=== PATIENT | male | born 1965 | race Caucasian/White ===

== ENCOUNTER 2021-01-01 10:28 | Observation (INO) | payer OTHER, SELFPAY ==
[2021-01-01] VITALS (12 sets, daily range): BP systolic 137–190; BP diastolic 88–130; PULSE 78–118; RESP 16; TEMP 36.2–36.7; O2SAT 97–100; BMI 31.1
--- NOTE | ~2021-01-01 | US_ITS ---
EXAMINATION: US abdomen limited EXAM DATE: 01/01/2021 15:00 INDICATION: RUQ abd pain, acute nichole. TECHNIQUE: Multiple grayscale and Doppler images of the abdomen right upper quadrant were obtained (b y a technologist who performed the scan) and subsequently reviewed. Correlation is made to CT abdomen pelvis 01/01/2021. FINDINGS: The pancreatic head and body are normal in appearance. The pancreatic tail is not visualized. The l iver has normal echogenicity and contour. There are no focal liver lesions identified. There is no evidence of intrahepatic biliary duct dilation. Portal venous flow was seen in the hepatopedal, nor mal direction and has normal Doppler waveform. No right-sided hydronephrosis. Common bile duct measures 6 mm, which is normal. Gallbladder is moderately distended with mildly thic kened wall at 4 mm. There is probable poorly calcified cholelithiasis. Technologist performing exam r dean patient did not demonstrate sonographic Shirley's sign. Please note that this sign is less rel iable in patients who have received pain medication. IMPRESSION: 1. Moderately distended gallbladder with mild wall thickening and probable poorly calcified cholelit hiasis. Possible acute cholecystitis. Consider HIDA scan. 2. Hepatic steatosis. Reviewed, dictated and finalized at location B. IMPRESSION: 1. Moderately distended gallbladder with mild wall thickening and probable poo rly calcified cholelithiasis. Possible acute cholecystitis. Consider HIDA scan. 2. Hepatic steatosis.
--- NOTE | ~2021-01-01 | CT_ITS ---
EXAMINATION: CT abdomen pelvis w con DATE: 01/01/2021 14:03 INDICATION: Right mid abdominal pain. TECHNIQUE: Computed tomography (CT) of the abdomen and pelvis was performed with 100 mL Omnipaque 350 intravenous contrast. Automated exposure control and iterative reconstruction technique were employe d. The dose-length product was 474.76 mGy-cm. COMPARISON: Chest CT 11/13/2006 FINDINGS: The visualized portions of the lung bases demonstrate mild atelectasis. No pleural effusion . The heart size is normal. No pericardial effusion. There is diffuse hepatic steatosis. The gallblad melissa is distended. There is a gallstone in the gallbladder neck. The spleen, pancreas, adrenal glands, and kidneys are normal. There are no dilated loops of bowel. The appendix is normal. There are no pa thologically enlarged lymph nodes. There is no free intraperitoneal fluid. There is mild chronic ante rior wedging of T11 and T12 vertebral bodies. There is mild thoracolumbar spondylosis. IMPRESSION: 1. Distended gallbladder with gallstone in the gallbladder neck suspicious for acute cholecystitis. 2. Diffuse hepatic steatosis. Reviewed, dictated and finalized at location A.
[2021-01-01 11:10] LABS: Basophils Absolute Auto 0.1 K/mm3 (0.0-0.1); Eosinophils Absolute Auto 0.1 K/mm3 (0-0.3); Eosinophils Percent Auto 0.4 % (0-4.4); Hematocrit 43.7 % (42.0-52.0); Hemoglobin 15.6 g/dL (14.0-18.0); Immature Granulocyte Absolute 0.15 K/mm3 (0.00-0.031); Immature Granulocyte Percent A 1.1 % (0-0.5); Lymphocytes Absolute Auto 2.28 K/mm3 (0.9-3.2); Lymphocytes Percent Auto 16.8 % (18.3-44.2); Mean Corpuscular HGB Conc 35.7 g/dl (32-36); Mean Corpuscular Volume 89.7 fl (80-100); Mean Platelet Volume 9.8 fl (7.4-10.4); Monocytes Absolute Auto 1.2 K/mm3 (0.1-0.6); Monocytes Percent Auto 9.2 % (2.6-8.5); Neutrophils Absolute Auto 9.7 K/mm3 (1.3-6.7); Neutrophils Percent Auto 71.5 % (45.5-73.1); Platelet Count Result 257 k/mm3 (150-375); Red Blood Count 4.87 M/mm3 (4.6-6.20); Red Cell Distribution Width 11.7 % (11.5-14.5); White Blood Count 13.5 K/mm3 (4.5-10.0)
[2021-01-01 11:29] LABS: Alanine Aminotransferase 36 U/L (4-50); Albumin Level 4.6 g/dL (3.5-5.1); Alkaline Phosphatase 55 U/L (38-126); Anion Gap 13 mmol/L (8-16); Aspartate Amino Transferase 30 U/L (17-59); Bilirubin,Total 0.6 mg/dL (0.2-1.3); Blood Urea Nitrogen 10 mg/dL (9-20); Calcium 8.9 mg/dL (8.4-10.2); Carbon Dioxide 22 mmol/L (22-30); Chloride 96 mmol/L (98-107); Estimated CRCL calculation 73 ml/min; Estimated Glomerular Filt Rate > 60; Glucose 341 mg/dL (65-110); Lipase 58 U/L (23-300); Potassium 3.6 mmol/L (3.4-5.0); Sodium 131 mmol/L (137-145)
--- NOTE | 2021-01-01 12:25 | ED.ABDPAIN ---
HPI - Abdominal Pain General Chief Complaint: Abdominal Pain Stated Complaint: ABD PAIN [id number] Time Seen by Provider: 01/01/21 12:24 Source: patient Mode of arrival: ambulatory Limitations: no limitations History of Present Illness HPI narrative: Patient is a 55-year-old male presenting for evaluation of right sided abdominal pain. Patient states pain has been present over the past week, pain initially began after he ate [employer] pizza. He reports sharp pain in the right middle abdomen without radiation to the flank. He denies associated fever or chills, does report multiple episodes of nausea and vomiting. Patient states he has been unable to tolerate any oral intake in the past 36 hours. Patient denies any dysuria or hematuria. No history of nephrolithiasis. No history of intra-abdominal surgeries. Patient states that he usually drinks 4 to 5 glasses of wine daily, denies history of alcohol withdrawal. Denies history of seizure disorder. Patient denies any diarrhea or constipation. No significant abdominal distention. Related Data Home Medications Medication Instructions Recorded Confirmed No Home Medications 01/01/21 01/01/21 Allergies Allergy/AdvReac Type Severity Reaction Status Date / Time No Known Allergies Allergy Verified 01/01/21 13:42 Review of Systems Review of Systems: CONSTITUTIONAL: Denies fever, chills, or sweats. EYES: Denies visual changes, redness, or discharge. ENT: Denies rhinorrhea, congestion, sore throat, or otalgia. CARDIOVASCULAR: Denies chest pain, palpitations, or edema. RESPIRATORY: Denies cough or dyspnea. GASTROINTESTINAL: Reports right-sided abdominal pain, nausea and vomiting GENITOURINARY: Denies dysuria or hematuria. SKIN: Denies rash or itching. MUSCULOSKELETAL: Denies back pain, joint pain, or myalgia. NEUROLOGIC: Denies headache, numbness, or weakness. [facility] Social History Social History (Updated 01/01/21 @ 13:00 by Mira Alcantar MD) Smoking status: Current every day smoker Tobacco type: e-cigarettes/vaping Alcohol intake: current Drinks per week: 20 Alcohol use details: 4-5 large glasses of wine daily per patient Substance use: never Gender identity (if verbalized by the patient): Male Exam Narrative: GENERAL: Awake, alert, conversant HEAD: Normocephalic, atraumatic. EYES: PERRLA and EOMI. ENT: Nares clear, no rhinorrhea or epistaxis. Mucous membranes moist. NECK: Supple. CHEST: No respiratory distress, breathing even and non labored HEART: Tachycardic rate, sinus rhythm ABDOMEN:Non distended,tender in the right middle abdomen, - McBurney's point tenderness, no epigastric tenderness, non rigid, + guarding, no flank tenderness EXTREMITIES: Normal range of motion. No edema. SKIN: Warm, dry, no rash. NEURO:No focal deficits. Alert and oriented x3 Course Vital Signs Vital signs: Vital Signs Temperature 36.7 C 01/01/21 10:42 Pulse Rate 118 H 01/01/21 10:42 Respiratory Rate 16 01/01/21 10:42 Blood Pressure 168/110 H 01/01/21 10:42 Pulse Oximetry 100 01/01/21 10:42 Temperature 36.7 C 01/01/21 10:42 Pulse Rate 118 H 01/01/21 10:42 Respiratory Rate 16 01/01/21 10:42 Blood Pressure 168/110 H 01/01/21 10:42 Pulse Oximetry 100 01/01/21 10:42 MDM - Abdominal Pain MDM Narrative Medical decision making narrative: Patient presenting for evaluation of abdominal pain. At the time of assessment, ABCs are intact and vital signs are stable but notable for tachycardia. Patient with reproducible right middle abdominal tenderness on exam. Negative for Shirley sign, no flank tenderness. Given clinical symptoms, concern for possible cholecystitis, gastroenteritis, nephrolithiasis. IV access obtained and patient was given a 30 mL/kg fluid bolus given he is meeting SIRS criteria with a tachycardia and leukocytosis. Patient without transaminitis. No hyperbilirubinemia. CT scan notable for acute cholecystitis. Patient was given
[2021-01-01] MEDS: SODIUM CHLORIDE 0.9% IV 1,000 ML 999 ML IV CONT ×2 (13:16→14:17)
[2021-01-01] MEDS: MORPHINE SULFATE (*CRX) 4 MG/ML INJ IV PUSH ×4 (13:40→23:54)
[2021-01-01] MEDS: ONDANSETRON INJ 4 MG/2 ML VIAL IV PUSH (13:40)
[2021-01-01 13:48] LABS: Add Urine Microscopic? YES; Appearance Urine Cloudy (Clear); Bacteria Urine Trace /hpf; Bilirubin Urine Negative (Negative); Blood Urine Negative (Negative); Color Urine Yellow (Yellow); Glucose Urine UA 3+ mg/dL (Negative); Ketones Urine Trace mg/dL (Negative); Leukocyte Esterase Ur Negative LEU/UL (Negative); Mucus Urine Rare /lpf; Nitrate Urine Negative (Negative); Protein Urine Negative (Negative); Specific Grav Ur 1.026 (1.001-1.035); Squamous Epithelial Cell Urine Few /hpf (Few); Urobilinogen Urine Negative mg/dL (<2.0)
[2021-01-01 14:02] LABS: Lactic Acid Reflex 1.2 mmol/L (0.7-2.1)
[2021-01-01] MEDS: HYDROmorphone HCL INJ (*CRX) 1 MG/ML SYR 0.5 MG IV PUSH (17:16)
--- NOTE | 2021-01-01 20:01 | ADMGEN ---
This patient, Mayank Contreras Jr., was admitted to Medical Room 249-01. Patient/family oriented to hospital policies and general routines including ID bracelet, bed and alarms, visiting hours, pain management, procedures, bathroom and other care routines, personal items, smoking policy, room service/diet, and visiting hours. Information on how to activate the Rapid Response Team has been discussed. Patient/Family are encouraged to report perceived risks to care and to ask questions if they do not understand what they are told or what they should do.
[2021-01-02] VITALS (16 sets, daily range): BP systolic 126–174; BP diastolic 76–95; PULSE 72–108; RESP 12–19; TEMP 36.1–36.9; O2SAT 95–100
[2021-01-02] MEDS: SODIUM CHLORIDE 0.9% IV 1,000 ML 125 ML IV CONT (01:36)
[2021-01-02] MEDS: MORPHINE SULFATE (*CRX) 4 MG/ML INJ IV PUSH (05:18)
[2021-01-02 05:28] LABS: Basophils Absolute Auto 0.1 K/mm3 (0.0-0.1); Basophils Percent Auto 1.1 % (0.2-1.2); Eosinophils Absolute Auto 0.2 K/mm3 (0-0.3); Eosinophils Percent Auto 3.2 % (0-4.4); Hematocrit 36.4 % (42.0-52.0); Hemoglobin 12.3 g/dL (14.0-18.0); Immature Granulocyte Absolute 0.06 K/mm3 (0.00-0.031); Immature Granulocyte Percent A 0.8 % (0-0.5); Lymphocytes Absolute Auto 2.37 K/mm3 (0.9-3.2); Lymphocytes Percent Auto 32.8 % (18.3-44.2); Mean Corpuscular HGB Conc 33.8 g/dl (32-36); Mean Corpuscular Hemoglobin 31.9 pg (26-34); Mean Corpuscular Volume 94.3 fl (80-100); Mean Platelet Volume 9.6 fl (7.4-10.4); Monocytes Absolute Auto 0.8 K/mm3 (0.1-0.6); Monocytes Percent Auto 11.5 % (2.6-8.5); Neutrophils Absolute Auto 3.7 K/mm3 (1.3-6.7); Neutrophils Percent Auto 50.6 % (45.5-73.1); Platelet Count Result 206 k/mm3 (150-375); Red Blood Count 3.86 M/mm3 (4.6-6.20); Red Cell Distribution Width 11.9 % (11.5-14.5); White Blood Count 7.2 K/mm3 (4.5-10.0)
[2021-01-02 05:39] LABS: Alanine Aminotransferase 43 U/L (4-50); Albumin Level 3.1 g/dL (3.5-5.1); Alkaline Phosphatase 38 U/L (38-126); Anion Gap 6 mmol/L (8-16); Aspartate Amino Transferase 38 U/L (17-59); Bilirubin,Total 0.5 mg/dL (0.2-1.3); Blood Urea Nitrogen 6 mg/dL (9-20); Calcium 7.9 mg/dL (8.4-10.2); Carbon Dioxide 25 mmol/L (22-30); Chloride 105 mmol/L (98-107); Estimated CRCL calculation 92 ml/min; Estimated Glomerular Filt Rate > 60; Glucose 203 mg/dL (65-110); Lipase 44 U/L (23-300); Potassium 3.9 mmol/L (3.4-5.0); Sodium 136 mmol/L (137-145)
[2021-01-02] MEDS: ONDANSETRON INJ 4 MG/2 ML VIAL IV PUSH (06:38)
--- NOTE | 2021-01-02 09:16 | PC.NURSE ---
I entered pt's room at approximately 0800 to change his IV fluids at which time I saw a breakfast tray (of clear liquids) that was given to pt. Pt confirmed that he drank everything on the tray. Pt is scheduled to have a laparoscopic cholecystectomy at 1330 and was to be NPO since midnight. I verified that the NPO order had not been placed and pt still had a clear liquids diet as active. I changed the diet to NPO. I explained to pt that he was to be NPO and they may have to postpone his surgery now. I also explained the reasoning behind the NPO order for surgeries. I accompanied pt as I had him walk the hallways in an effort to increase his GI function. I contacted Dr. Stout (spoke with his diet assistant/nurse) to inform him as to what transpired. Dr. Stout's diet assistant/nurse stated she was inform Dr. Stout and they would let me know what he decides to do.
--- NOTE | 2021-01-02 09:59 | PM.IMHP ---
H&P: HPI History of Present Illness Date/Time: 01/02/21 09:59 Pt is a 55 y/o M presenting to ED c/o severe epigastric, RUQ abd pain. Pt reports pain has been progressively worsening over last week. Pt reports pain started after eating pizza for dinner. Pt reports associated anorexia, N/V. Pt reports he feels very bloated, full. Pt reports similar, milder symptoms in the past. Chief Complaint: acute cholecystitis Review of Systems Constitutional: Constitutional: Reports anorexia, Denies body ache(s), Denies chills, Reports fatigue, Denies fever(s), Denies headache(s), Reports lethargy, Denies malaise, Reports poor appetite, Reports weakness, Denies weight gain and Denies weight loss Eyes: Eyes: Reports no additional eye complaints ENT: Reports system reviewed and no additional complaints, except as documented Cardiovascular: Cardiovascular: Reports no additional cardiovascular complaints Respiratory: Respiratory: Reports no additional respiratory complaints Gastrointestinal: Gastrointestinal: Reports as per HPI, Reports abdominal pain, Denies belching, Reports bloating, Denies change in bowel habits, Denies change in stool character, Denies constipation, Reports GI cramping, Reports early satiety, Denies dyspepsia, Reports heartburn, Denies diarrhea, Denies loose stools, Reports nausea and Reports vomiting Genitourinary: Genitourinary: Reports no additional male genitourinary complaints Musculoskeletal: Musculoskeletal: Reports no additional musculoskeletal complaints Integumentary/Breasts: Skin/Breast: Reports system reviewed and no additional complaints, except as docu Neurologic: Reports system reviewed and no additional complaints, except as documented Psychiatric: Psychiatric: Reports no additional psychiatric complaints Endocrine: Endocrine: Reports no additional endocrine complaints Hematologic/Lymphatic: Hematologic/Lymphatic: Reports no additional hematologic/lymphatic complaints Allergic/Immunologic: Allergic/Immunologic: Reports no additional allergic/immunologic complaints [facility] Family History Family History Father Cerebrovascular accident Diabetes mellitus Social History Social History Smoking status: Current every day smoker Tobacco type: e-cigarettes/vaping Alcohol intake: current Drinks per week: 30 Alcohol use details: 4-5 large glasses of wine daily per patient Substance use: current Substance use type: marijuana Last use: 12/31/20 Gender identity (if verbalized by the patient): Male Spiritual care concerns: No Comments PMH - ETOH abuse PSxH - denies any previous abdominal surgeries Meds Home Medications and Allergies Home Medications Medication Instructions Recorded Confirmed Type No Home Medications 01/01/21 01/01/21 History Allergies Allergy/AdvReac Type Severity Reaction Status Date / Time No Known Allergies Allergy Verified 01/01/21 13:42 Vital Signs Vital Signs - 24 hr 01/01/21 10:42 01/01/21 13:16 01/01/21 13:31 Temperature 36.7 C Pulse Rate 118 H 78 78 Respiratory Rate 16 16 16 Blood Pressure 168/110 H 190/130 H 177/116 H Pulse Oximetry 100 99 100 01/01/21 14:17 01/01/21 15:00 01/01/21 16:00 Temperature Pulse Rate 78 82 88 Respiratory Rate 16 16 16 Blood Pressure 156/100 H 162/99 H 156/101 H Pulse Oximetry 100 99 97 01/01/21 17:00 01/01/21 18:00 01/01/21 19:00 Temperature Pulse Rate 82 80 82 Respiratory Rate 16 16 16 Blood Pressure 158/100 H 156/100 H 150/97 H Pulse Oximetry 97 97 97 01/01/21 20:20 01/01/21 20:29 01/01/21 21:11 Temperature 36.2 C L Pulse Rate 80 91 106 H Respiratory Rate 16 16 Blood Pressure 137/88 Pulse Oximetry 97 98 01/02/21 00:00 01/02/21 04:00 01/02/21 04:36 Temperature 36.2 C L Pulse Rate 79 108 H 86 Respiratory Rate 16 Blood Pressure 126/88 Pulse Oximet
--- NOTE | 2021-01-02 12:35 | WPDANESEPPF ---
Anes - Initial Pre Proc Eval Procedure: Operation Date: 01/02/21 13:30 Proposed Procedures p Laparoscopic Cholecystectomy - Franchesca Stout MD Date/Time: 01/02/21 12:35 Surgeon: Franchesca Stout MD Pre Op Diagnosis: Acute Cholecystitis Patient Data Age: 55 Gender: M Height: 1.73 m Weight: 92.8 kg Last Vital Signs Temp 36.2 C L 01/02/21 04:36 Pulse 93 01/02/21 08:00 Resp 16 01/02/21 04:36 BP 126/88 01/02/21 04:36 Pulse Ox 96 01/02/21 04:36 Allergies Allergy/AdvReac Type Severity Reaction Status Date / Time No Known Allergies Allergy Verified 01/01/21 13:42 Home Medications Medication Instructions Recorded Confirmed Type No Home Medications 01/01/21 01/01/21 History Laboratory Tests 01/01/21 01/01/21 01/02/21 13:23 13:39 05:00 WBC 7.2 K/mm3 K/mm3 (4.5-10.0) RBC 3.86 M/mm3 L M/mm3 (4.6-6.20) Hgb 12.3 g/dL L D g/dL (14.0-18.0) Hct 36.4 % L % (42.0-52.0) MCV 94.3 fl D fl (80-100) MCH 31.9 pg pg (26-34) MCHC 33.8 g/dl g/dl (32-36) RDW 11.9 % % (11.5-14.5) Plt Count 206 k/mm3 k/mm3 (150-375) MPV 9.6 fl fl (7.4-10.4) Immature Gran % (Auto) 0.8 % H % (0-0.5) Neut % (Auto) 50.6 % % (45.5-73.1) Lymph % (Auto) 32.8 % % (18.3-44.2) Mower % (Auto) 11.5 % H % (2.6-8.5) Eos % (Auto) 3.2 % % (0-4.4) Baso % (Auto) 1.1 % % (0.2-1.2) Lymph # (Auto) 2.37 K/mm3 K/mm3 (0.9-3.2) Mower # (Auto) 0.8 K/mm3 H K/mm3 (0.1-0.6) Eos # (Auto) 0.2 K/mm3 K/mm3 (0-0.3) Baso # (Auto) 0.1 K/mm3 K/mm3 (0.0-0.1) Abs Immat Gran (auto) 0.06 K/mm3 H K/mm3 (0.00-0.031) Absolute Neuts (auto) 3.7 K/mm3 K/mm3 (1.3-6.7) Absolute Nucleated RBC 0.0 K/mm3 K/mm3 (0.0-0.012) Nucleated RBC % 0.0 % % (0.0-0.2) Sodium Potassium Chloride Carbon Dioxide Anion Gap BUN Creatinine Estim Creat Clear Calc Estimated GFR Glucose Lactic Acid 1.2 mmol/L mmol/L (0.7-2.1) Calcium Total Bilirubin AST ALT Alkaline Phosphatase Total Protein Albumin Lipase Urine Color Yellow (Yellow) Urine Appearance Cloudy H (Clear) Urine pH 6.0 (5.0-9.0) Ur Specific Pruden 1.026 (1.001-1.035) Urine Protein Negative mg/dL mg/dL (Negative) Urine Glucose (UA) 3+ mg/dL H mg/dL (Negative) Urine Ketones Trace mg/dL mg/dL (Negative) Ur Blood (Man) Negative (Negative) Urine Nitrate Negative (Negative) Urine Bilirubin Negative (Negative) Urine Urobilinogen Negative mg/dL mg/dL (<2.0) Leukocyte Esterase Rfl Negative LEONARDO/UL LEONARDO/UL (Negative) Urine RBC 3-5 /hpf H /hpf (0-2) Ur Squamous Epith Cells Few /hpf /hpf (Few) Urine Bacteria Trace /hpf /hpf Urine Mucus Rare /lpf /lpf 01/02/21 05:00 WBC RBC Hgb Hct MCV MCH MCHC RDW Plt Count MPV Immature Gran % (Auto) Neut % (Auto) Lymph % (Auto) Mower % (Auto) Eos % (Auto) Baso % (Auto) Lymph # (Auto) Mower # (Auto) Eos # (Auto) Baso # (Auto) Abs Immat Gran (auto) Absolute Neuts (auto) Absolute Nucleated RBC Nucleated RBC % Sodium 136 mmol/L L mmol/L (137-145) Potassium 3.9 mmol/L mmol/L (3.4-5.0) Chloride 105 mmol/L mmol/L (98-107) Carbon Dioxide 25 mmol/L mmol/L (22-30) Anion Gap 6 mmol/L L mmol/L (8-16) BUN 6 mg/dL L mg/dL (9
[2021-01-02] MEDS: LACTATED RINGERS 1,000 ML 30 ML IV CONT ×2 (13:00→14:55)
--- NOTE | 2021-01-02 13:37 | WPDHPUPDATE1 ---
History and Physical Update Update Date/Time: 01/02/21 13:37 History and Physical has been reviewed, including an updated exam of the patient. There are NO changes in the patient's condition. Risks, benefits, and alternatives have been discussed and questions answered. Patient agrees to proceed with procedure.
--- NOTE | 2021-01-02 14:48 | W.PM.PROC2 ---
Procedure Note - Detailed Date of Procedure 01/02/21 Pre-op Diagnosis Acute hydrops cholecystitis, cholelithiasis Post-op Diagnosis same Procedure Performed laparoscopic cholecystectomy Surgeon Franchesca Stout MD Anesthesia general Indications 55 y/o M presenting c acute cholecystitis, cholelithiasis Findings acute hydrops cholecystitis, cholelithiasis Description of Procedure The patient was taken to the operating room placed in the supine position. After adequate induction of general anesthesia, the patient was prepped and draped in normal sterile fashion. A time-out was then performed to verify the patient's identity as well as the procedure being performed. I then made a 5 mm incision in the infraumbilical region. Through this, a Veress needle was placed into the peritoneal cavity and CO2 gas was then insufflated. After adequate pneumoperitoneum was achieved, the Veress needle was removed and a 5 mm optiview trocar was placed through this incision under direct visualization. I then placed the laparoscope through this trocar site and under direct visualization placed a further 12 mm subxiphoid port as well as 2 additional 5 mm ports in the right upper abdomen. The gallbladder was then identified and was noted to be verly inflamed, distended, and full of gallstones. Given the amount of inflammation, the gallbladder was decompressed with the ovarian needle. Hydrops cholecystitis was noted at this point. I was then able to place a grasper at the dome of the gallbladder and this was retracted anterior and cephalad up over the liver. A 2nd retractor was then placed at the infundibulum and retracted laterally, this allowed visualization of the triangle of Calot. I then was able to visualize the cystic duct in its entirety from its proximal insertion into the gallbladder, to its distal junction with the common hepatic/common bile duct junction. At this point, I carefully skeletonized the proximal cystic duct with the [place] dissector. I then clipped and transected the proximal cystic duct. Next I visualized the cystic artery. Again the artery was skeletonized, clipped, and transected. I then used the Bovie cautery to take down the peritoneal attachments of the gallbladder off the liver bed. This was somewhat difficult given the amount of inflammation in the posterior space. Once the gallbladder specimen was completely detached, an endo-pouch was placed through the 12 mm port site. I then placed the gallbladder specimen into the Endo pouch and removed the endo-pouch from the 12 mm port site. The specimen will now be sent to pathology for further review. I then copiously irrigated the right upper quadrant. Hemostasis was noted in the liver bed, the clips were noted to be in good position on both the cystic duct stump and the cystic artery stump. No other pathology was noted in the right upper quadrant. I then moved the laparoscope to the subxiphoid port. No iatrogenic injury or other pathology was noted in the lower abdomen. I then closed the 12 mm trocar site under direct visualization using the Can cone and 0 Vicryl suture. At this point, the abdomen was desufflated and all ports removed. All port sites were then closed with 4.O Monocryl subcuticular sutures. Dermabond was placed on each incision. The patient tolerated the procedure well, was extubated in the operating room postoperative and will be transferred to the recovery room in stable condition Estimated Blood Loss 5 Drains No Packing No Pathology yes Complications No immediate complications Condition stable Disposition PACU
[2021-01-02] MEDS: fentaNYL CITRATE INJ (*CRX) 100 MCG/2 ML VIAL 25 MCG IV PUSH (16:06)
--- NOTE | 2021-01-02 16:32 | SUR.PHASEI ---
1600 PATIENT ASKED ME NOT TO CALL ANY FAMILY MEMBER.
[2021-01-02] MEDS: HYDROcodone/acetaminophen (*CRX) 5-325 MG TABLET 1 TAB PO (18:36)
--- NOTE | 2021-01-05 10:13 | PM.DS ---
DS: Admitting Diagnosis Discharge Date 01/02/21 Admitting Diagnosis Acute cholecystitis DS: Discharge Diagnosis Discharge Diagnosis (1) Acute cholecystitis: Code(s): K81.0 - Acute cholecystitis Status: Acute Assessment and Plan: status post laparoscopic cholecystectomy, routine postoperative care, prescription for p.o. analgesia, follow-up 2 weeks (2) Alcohol abuse: Code(s): F10.10 - Alcohol abuse, uncomplicated Status: Acute Assessment and Plan: discussed cessation DS: Summary Hospital Course Reason for hospitalization: acute cholecystitis Hospital Course: The patient is a 55-year-old male that presented to the emergency department complaining of severe upper abdominal pain. Workup, including imaging, was significant for acute cholecystitis. The patient was subsequently admitted to the surgical service and started on IV antibiotics. Upon evaluation, the decision was made for urgent cholecystectomy. The patient underwent laparoscopic cholecystectomy on 01/02, please see full operative report for details of that procedure. Patient did well postoperatively and was transferred back to the floor. He continued to do well on the floor, was able to tolerate a diet and ambulating without difficulty. The patient be sent home with p.o. analgesia and instructions for routine postoperative care. He will follow up in 2 weeks. Status at Discharge Functional status at discharge: independent ambulation Overall status at discharge: patient is progressing back to baseline Time Spent with Patient Time attestation: Total time spent providing and/or coordinating discharge services: Time spent: Less than 30 minutes Exam Const: General: cooperative, healthy appearing, comfortable and no acute distress Resp: Effort & Inspection: normal respiratory effort Auscultation: clear to auscultation bilaterally Cardio: Rate: regular rate Rhythm: regular rhythm GI: Inspection: normal to inspection, distended and incision GI Palp: Yes Soft to palpation and Yes Tenderness to palpation present (GI) DS: Data Data Completed and Pending Pending studies at discharge: Pending at discharge 01/02/21 14:16 Surgical [PTH] Routine Labs on day of discharge: Preliminary micro results at discharge 01/01/21 13:39 Blood Culture - Preliminary Blood 01/01/21 13:39 Blood Culture - Preliminary Blood Discharge Plan Discharge Attending physician on discharge: Franchesca Stout Discharging Clinician: Franchesca Stout Anticipated Discharge Date/Time: 01/02/21 18:00 Patient Disposition: Home, Self-Care Activity: other - see discharge instructions Diet: other - see discharge instructions Wound Care Instructions: incision open to air Discharge Instructions: DISCHARGE INSTRUCTION SHEET FOR HERNIA, GALLBLADDER AND APPENDIX SURGERIES DR. STOUT PATIENT TO TAKE HOME 1. May shower in 24 hours, no soaking in bath x 2weeks. 2. Call office for: Wound increasingly painful or bleeding Vomiting Fever of greater than 101 degrees 3. If no bowel movement for three days, take 1 oz. (30 ml) Milk of Magnesia or MiraLax 17g 1 to 2 times daily. 4. No heavy lifting > 10-15 pounds x 6 weeks for hernia repairs and 2 weeks for laparoscopic cholecystectomy or appendectomy. 5. No driving for 3 days or while taking narcotic pain medications. 6. Ice to surgical site for 48 hours (30 min on, then 30 min off). 7. Up walking 10-30 minutes three times per day. 8. Resume previous home medications. 9. Follow-up 10-14 days in office for wound check or as previously scheduled. ([phone]) 10. Oral pain medications prescription to be sent to pharmacy. Take Tylenol 500mg every 6 hours and Ibuprofen 600mg every 6 hours for the first 2 days, then as needed. 11. NUTRITION: Start out by drinking fluids and increase your diet as tolerated
== END 2021-01-02 18:51 | disposition home or self-care (01) ==
LOC: ANHED 14:59 → ANH2MED 17:43
PROVIDERS: Emergency Medicine; Admitting Provider Surgery; Emergency Provider Emergency Medicine; Visit Provider Surgery
PROC: 0FT44ZZ Resection of Gallbladder, Percutaneous Endoscopic Approach (ICD-10-PCS; CPT 47562; principal; 2021-01-02 13:30)
DX: K80.00 Calculus of gallbladder with acute cholecystitis without obstruction (principal); R10.10 Upper abdominal pain, unspecified; F17.290 Nicotine dependence, other tobacco product, uncomplicated
CPT/HCPCS: 47562; 36415; 74177; 76705; 80053; 81001; 83605; 83690; 85025; 87040; 88304; 96361; 96365; 96366; 96367; 96375; 96376; 99285; A9270; G0378; J0692; J1170; J2250; J2270; J2405; J2543; J3010; J3411; J3475; J7030; J7120; J7121; Q9967